=== PATIENT | male | born 1975 | race African-American/Black ===

== ENCOUNTER 2017-05-03 01:23 | Emergency (ER) | payer SELFPAY ==
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
[2017-05-03 02:01] LABS: PLATELET COUNT 332 10^3/uL (150-400)
[2017-05-03 02:33] VITALS: BP 123/76; PULSE 75; RESP 16; TEMP 97.2; O2SAT 97
== END 2017-05-03 02:32 | disposition home or self-care (01) ==
DX: F14.10 Cocaine abuse, uncomplicated (principal)
CPT/HCPCS: 80305; G0480